=== PATIENT | male | born 1950 | race Caucasian/White ===

== ENCOUNTER 2020-03-23 12:56 | Outpatient (RCR) | payer MEDICARE, SELFPAY | END 2020-06-03 12:04 | disposition home or self-care (01) | LOC: ANHDMC 12:56 | PROVIDERS: PCP Internal Medicine Endocrinology, Diabetes & Metabolism | DX: E10.65 Type 1 diabetes mellitus with hyperglycemia (principal); Z79.4 Long term (current) use of insulin; Z71.89 Other specified counseling | CPT/HCPCS: G0108 ==

== ENCOUNTER 2020-05-20 12:47 | Outpatient (CLI) | payer MEDICARE, SELFPAY ==
--- NOTE | ~2020-05-20 | CT_ITS ---
EXAMINATION: CT abdomen pelvis w con INDICATION: Prostate cancer TECHNIQUE: Computed tomographic images of the abdomen and pelvis were obtained after the administrati on of 100 cc of Omnipaque 350 intravenous contrast. The dose-length product (DLP) was 984.14 mGy-cm. Automated exposure control and iterative reconstruction technique were employed. COMPARISON: None available FINDINGS: Minimal dependent atelectasis is present in the lung bases. The heart size is normal. The l iver, spleen, pancreas, gallbladder, and adrenal glands are normal. The left kidney is unremarkable. A 5 mm hypoattenuating lesion of the right mid kidney is too small to characterize but likely represe nts a cyst. There is a 1.4 cm right common femoral lymph node on image 148. There is calcified athero sclerosis of the aorta and many of the other arteries. There is no free intraperitoneal gas or eviden ce of bowel obstruction. The urinary bladder is distended. A moderate volume of colonic stool is pres ent. The appendix is normal. There is a fat-containing umbilical hernia. There is severe lumbar spond ylosis. IMPRESSION: 1. Enlarged right common femoral chain lymph node, concerning for metastatic disease. 2. Marked distention of the urinary bladder. Reviewed, dictated and finalized at location A. IMPRESSION: 1. Enlarged right common femoral chain lymph node, concerning for metastatic di sease. 2. Marked distention of the urinary bladder.
--- NOTE | ~2020-05-20 | XR_ITS ---
EXAMINATION: XR chest 2V DATE: 05/20/2020 13:08 INDICATION: Prostate cancer TECHNIQUE: PA and lateral views of the chest are obtained. COMPARISON: 01/14/2004 FINDINGS: The lungs are free of acute opacities. There is no pleural effusion or pneumothorax. The ca rdiomediastinal silhouette is normal. There is moderate thoracic spondylosis. Multiple healed bilater al rib fractures are noted. IMPRESSION: 1. No acute cardiopulmonary abnormality. Reviewed, dictated and finalized at location A.
[2020-05-20 13:47] LABS: Estimated Glomerular Filt Rate > 60
== END 2020-05-20 12:48 | disposition home or self-care (01) ==
PROVIDERS: Visit Provider Urology
DX: C61 Malignant neoplasm of prostate (principal)
CPT/HCPCS: 71046; 74177; Q9967

== ENCOUNTER 2020-05-21 08:25 | Outpatient (CLI) | payer MEDICARE, SELFPAY ==
--- NOTE | ~2020-05-21 | NM_ITS ---
EXAMINATION: NM bone scan whole body DATE: 05/21/2020 12:43 INDICATION: Prostate cancer TECHNIQUE: 26.2 mCi Tc-99m HDP was administered intravenously. Delayed whole-body scintigrams were o btained. COMPARISON: CT abdomen and pelvis and chest x-ray dated 05/20/2020 FINDINGS: Moderate amount of activity within the markedly distended bladder despite patient attempted voiding. Linear pattern of minimal increased uptake extending along multiple posterior old right rib fractures . Mild increased uptake at the anterior left fifth rib with suggestion of an additional nondisplaced fracture. Left [id number] amputation. Minimal likely degenerative uptake in a few of the joints i n the bilateral hands and right foot feet. No other suspicious bone lesions to suggest osteoblastic m etastatic disease. IMPRESSION: 1. No lesion suspicious for osseous metastatic disease. Reviewed, dictated and finalized at location B.
== END 2020-05-21 08:26 | disposition home or self-care (01) ==
LOC: ANHIMG 08:28
PROVIDERS: Visit Provider Urology
DX: C61 Malignant neoplasm of prostate (principal)
CPT/HCPCS: 78306; A9561

== ENCOUNTER 2020-10-11 00:21 | Outpatient (CLI) | payer MEDICARE, SELFPAY ==
[2020-10-11 18:26] LABS: SARS-CoV-2 RNA PCR Negative
== END 2020-10-11 00:22 | disposition home or self-care (01) ==
LOC: ANHCOVIDDT 00:21
PROVIDERS: Visit Provider Urology
DX: Z01.812 Encounter for preprocedural laboratory examination (principal); Z20.822 Contact with and (suspected) exposure to COVID-19
CPT/HCPCS: C9803; U0003; U0005

== ENCOUNTER 2020-10-11 08:31 | Outpatient (CLI) | payer MEDICARE, SELFPAY ==
--- NOTE | 2020-10-11 08:35 | ECG_ITS ---
Measurements Intervals [place] Rate: 93 P: 61 ND: 189 QRS: 28 QRSD: 94 T: 43 QT: 361 QTc: 450 Interpretive Statements SINUS RHYTHM FREQUENT VENTRICULAR PREMATURE COMPLEXES POSSIBLE LEFT ATRIAL ENLARGEMENT DELAYED PRECORDIAL R/S TRANSITION BASELINE ARTIFACT- I, III, AVR, AVL ABNORMAL ECG Electronically Signed On 10-11-2020 10:16:04 MANAGER BUSINESS INTELLIGENCE by Blake Morfin D.O.
[2020-10-11 09:43] LABS: Anion Gap 4 mmol/L (8-16); Blood Urea Nitrogen 15 mg/dL (9-20); Calcium 9.5 mg/dL (8.4-10.2); Carbon Dioxide 29 mmol/L (22-30); Chloride 101 mmol/L (98-107); Estimated Glomerular Filt Rate > 60; Glucose 170 mg/dL (75-110); Potassium 3.7 mmol/L (3.4-5.0); Sodium 134 mmol/L (137-145)
== END 2020-10-11 08:32 | disposition home or self-care (01) ==
LOC: ANHSURGERY 08:35
PROVIDERS: Anesthesiology; Visit Provider Urology
DX: E10.9 Type 1 diabetes mellitus without complications (principal); Z01.812 Encounter for preprocedural laboratory examination
CPT/HCPCS: 36415; 80048; 93005

== ENCOUNTER 2020-10-14 01:08 | Day surgery (SDC) | payer MEDICARE, SELFPAY ==
[2020-10-05 09:01] VITALS: BMI 27.1
--- NOTE | 2020-10-06 13:49 | PM.HPGS ---
History of Present Illness History of Present Illness Consent: Risks, benefits, and alternatives have been discussed and questions answered. Patient agrees to proceed with procedure. Chief complaint: prostate CA Narrative: Santosh López is a 70 year old male This is a patient of Dr. León who recently presented with a PSA of 7.8ng/dl. He was diagnosed with clinically localized adenocarcinoma of the prostate and is scheduled for definitive pelvic IMRT. He's opted for placement of SpaceOAR to minimize risk of rectal irritation. Review of Systems Cardiovascular: Cardiovascular: Denies chest pain, Denies lightheadedness, Denies palpitations and Denies dyspnea Respiratory: Respiratory: Denies dyspnea Gastrointestinal: Gastrointestinal: Denies diarrhea, Denies nausea and Denies vomiting Genitourinary: Genitourinary: Denies hematuria and Denies dysuria Endocrine: Endocrine: Denies palpitations PMFSH Past Medical History Medical History Asthma Back pain Cataracts, bilateral Diabetes mellitus Dupuytren's contracture of left hand 1994, 2011, 2017 Dupuytren's contracture of right hand 1996, 2006 Hearing loss Hypertension Prostate disease Surgical History Surgical History H/O angioplasty 09/03 History of oral surgery 1996 Hx of BKA left foot, 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 Previous back surgery L4-L5 trimmed bulging disc in 1992 Family History Family History Other Asthma Blood disorder COPD (chronic obstructive pulmonary disease) Diabetes mellitus Mini stroke Shortness of breath Social History Social History Smoking packs per day: 2 Smoking cigarettes per day: 40.0 Years smoked: 20 Smoking pack-years: 40.00 Smoking status: Former smoker Tobacco type: cigarettes and pipe Additional smoking assessment comments: PT UNCLEAR ON SMOKING HX - QUIT Alcohol intake: current Substance use: never Substance use type: does not use Spiritual care concerns: No Meds Home Medications and Allergies Home Medications Medication Instructions Recorded Confirmed Type aspirin 81 mg tablet,delayed 81 mg PO DAILY 09/30/19 10/05/20 History release azelastine 0.15 % (205.5 mcg) 1 spray NASAL DAILY 09/30/19 10/05/20 History nasal spray carvedilol 25 mg tablet 25 mg PO Q12H 09/30/19 10/05/20 History diltiazem HCl 240 mg 240 mg PO DAILY 09/30/19 10/05/20 History capsule,extended release 24 hr olopatadine 0.2 % eye drops 1 drop EACH EYE DAILY 09/30/19 10/05/20 History pravastatin 40 mg tablet 40 mg PO DAILY 09/30/19 10/05/20 History valsartan 320 1 tablet PO DAILY 09/30/19 10/05/20 History mg-hydrochlorothiazide 25 mg tablet vit C 250 mg-vit E 200 unit-zinc 1 tablet PO BID 09/30/19 10/05/20 History 12.5 mg-copper 1 [id number] tablet cholecalciferol (vitamin D3) 50 50 mcg PO DAILY 12/31/19 10/05/20 History mcg (2,000 unit) capsule insulin lispro 100 unit/mL See Rx Instructions .ROUTE 03/08/20 10/05/20 Rx subcutaneous solution .COMPLEX 90 Days #70 ml blood sugar diagnostic #600 ea 08/27/20 10/05/20 Rx Allergies Allergy/AdvReac Type Severity Reaction Status Date / Time Penicillins Allergy Mild RASH Verified 10/05/20 08:59 clindamycin Allergy Unknown rash Verified 10/05/20 08:59 CEPHALEXIN MONOHYDRATE Allergy Mild RASH Uncoded 10/05/20 08:59 Exam Const: General: no acute distress Resp: Effort & Inspection: normal respiratory effort GI: Inspection: non-distended GI Palp: No abdominal tenderness and No Guarding due to palpation present (GI) Auscultation: normal bowel sounds Assessment and Plan Assessment and plan (1) Prostate cancer: Code(s): C61 - Malignant neoplasm of prostate Status: Acute Assessment and Plan: Transrectal ultrasou
--- NOTE | 2020-10-13 13:43 | WPDANESEPPF ---
Anes - Initial Pre Proc Eval Procedure: Operation Date: 10/14/20 11:30 Proposed Procedures p Insertion SpaceOAR Hydrogel System - Kiko León MD Date/Time: 10/13/20 13:43 Surgeon: Kiko León MD Pre Op Diagnosis: prostate CA Patient Data Age: 70 Gender: M Height: 1.79 m Weight: 86.81 kg Allergies Allergy/AdvReac Type Severity Reaction Status Date / Time Penicillins Allergy Mild RASH Verified 10/14/20 09:32 clindamycin Allergy Unknown rash Verified 10/14/20 09:32 CEPHALEXIN MONOHYDRATE Allergy Mild RASH Uncoded 10/14/20 09:32 Home Medications Medication Instructions Recorded Confirmed Type aspirin 81 mg tablet,delayed 81 mg PO DAILY 09/30/19 10/14/20 History release azelastine 0.15 % (205.5 mcg) 1 spray NASAL DAILY 09/30/19 10/14/20 History nasal spray carvedilol 25 mg tablet 25 mg PO Q12H 09/30/19 10/14/20 History diltiazem HCl 240 mg 240 mg PO DAILY 09/30/19 10/14/20 History capsule,extended release 24 hr olopatadine 0.2 % eye drops 1 drop EACH EYE DAILY 09/30/19 10/14/20 History pravastatin 40 mg tablet 40 mg PO DAILY 09/30/19 10/14/20 History valsartan 320 1 tablet PO DAILY 09/30/19 10/14/20 History mg-hydrochlorothiazide 25 mg tablet vit C 250 mg-vit E 200 unit-zinc 1 tablet PO BID 09/30/19 10/14/20 History 12.5 mg-copper 1 [id number] tablet cholecalciferol (vitamin D3) 50 50 mcg PO DAILY 12/31/19 10/14/20 History mcg (2,000 unit) capsule insulin lispro 100 unit/mL See Rx Instructions .ROUTE 03/08/20 10/05/20 Rx subcutaneous solution .COMPLEX 90 Days #70 ml blood sugar diagnostic #600 ea 08/27/20 10/05/20 Rx Patient hx anesthesia problems: none Family hx anesthesia problems: none PMFSH Past Medical History Medical History (Updated 10/13/20 @ 13:45 by Bobby Hobbs MD) Arthritis Asthma Back pain Cataracts, bilateral Diabetes mellitus Dupuytren's contracture of left hand 1994, 2011, 2018 Dupuytren's contracture of right hand 1996, 2006 Hearing loss Hypercholesterolemia Hypertension Prostate CA Prostate disease PVD (peripheral vascular disease) Surgical History Surgical History H/O angioplasty 09/03 History of oral surgery 1996 Hx of BKA left foot, 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 Previous back surgery L4-L5 trimmed bulging disc in 1992 Family History Family History Other Asthma Blood disorder COPD (chronic obstructive pulmonary disease) Diabetes mellitus Mini stroke Shortness of breath Social History Social History Smoking packs per day: 2 Smoking cigarettes per day: 40.0 Years smoked: 20 Smoking pack-years: 40.00 Smoking status: Former smoker Tobacco type: cigarettes and pipe Additional smoking assessment comments: PT UNCLEAR ON SMOKING HX - QUIT Alcohol intake: current Alcohol use details: STATES 3-5 DRINKS A MONTH Substance use: never Substance use type: does not use Living arrangements: alone Spiritual care concerns: No Anes - Eval Final PreProcedure Day of Procedure 10/13/20 13:43 Patient weight: overweight Heart: regular rate and rhythm Lungs: clear to auscultation and normal air movement Airway: Mallampati scale class II Neurological: alert and oriented Last oral intake: >/= 8 hours ASA classification: III Emergent: no Anesthetic plan: proceed Anesthesia type and monitoring: general GIVS and LMA Informed Consent: The patient's anesthetic plan and its attendant risks and benefits were discussed with the patient/family/POA. Questions were solicited and answers provided to the satisfaction of the patient/family/POA.
[2020-10-14] VITALS (8 sets, daily range): BP systolic 107–148; BP diastolic 75–93; PULSE 82–89; RESP 9–18; TEMP 36.3–36.9; O2SAT 93–99
--- NOTE | 2020-10-14 07:13 | WPDHPUPDATE1 ---
History and Physical Update Update Date/Time: 10/14/20 07:13 History and Physical has been reviewed, including an updated exam of the patient. There are NO changes in the patient's condition. Risks, benefits, and alternatives have been discussed and questions answered. Patient agrees to proceed with procedure.
[2020-10-14] MEDS: LACTATED RINGERS 1,000 ML 30 ML IV CONT (09:59)
[2020-10-14 10:31] LABS: Glucose Point of Care 231 (65-105)
--- NOTE | 2020-10-14 10:44 | SUR.PREOP ---
Spoke with Dr Bobby Hobbs about blood sugar 231. Patient to continue insulin pump as is.
[2020-10-14] MEDS: levoFLOXacin 500 MG/D5W 100 ML 500 MG/100 ML BAG 100 MG IVPB (11:34)
--- NOTE | 2020-10-14 11:58 | P.OP_ITS ---
Procedure Note - Detailed Date of procedure: 10/14/20 Pre-op diagnosis: prostate CA Post-op diagnosis: same Procedure performed: Placement SpaceOAR Description of procedure: This patient has been diagnosed with prostate cancer. Patient has met with a radiation oncologist who has prescribed a course of radiation for treatment of the malignancy. Please refer to the Radiation Oncologist's note for radiation method, dose, number of fractions. After discussing with the radiation oncologist and the patient, it has been agreed upon to proceed with SpaceOAR placement. The purpose of SpaceOAR is to reduce rectal irradiation during radiation therapy by placing an absorbable polyethylene glycol (PEG) hydrogel (SpaceOAR) into perirectal fat space, thereby pushing the rectum away from the prostate. Prior to the procedure, a timeout was performed confirming the patient's identity and planned the procedure. Anesthesia was induced without complication. Antibiotics were administered prophylactically, and the patient completed an enema at home prior to the procedure. The patient was positioned in the dorsal lithotomy position. A transrectal ultrasound probe was inserted per rectum with clear visualization of the prostatic base and apex. SpaceOAR hydrogel was prepared as described in the dough mixing machine operator?s 'Instructions For Use'. Under transrectal ultrasound guidance, a 15 cm 18G needle was inserted, transperineal, through the rectourethralis muscle and the needle tip advanced into the perirectal fat posterior to the prostate. The needle position, and downward bevel, were confirmed in both sagittal and axial brunson. 3-5cc of St erile Saline was used to hydro-dissect the space between the Denonvilliers? fascia and anterior rectal wall. Aspiration did not yield any bleeding. With the needle tip at mid gland, the axial field was viewed to confirm the needle was not in the rectal wall -- movement of the needle tip without corresponding movement of the rectal wall confirmed perirectal placement. The assembled SpaceOAR delivery system was then attached to the 18G needle. Under ultrasound guidance in the sagittal plane, a smooth, continuous injection technique was used to dispense all 10cc of the SpaceOAR hydrogel into the space between the prostate and rectum. Optimal visualization of the needle during hydrogel administration was maintained at all times. An axial measurement of the space between the prostate (mid gland) and rectum immediately post-SpaceOAR injection was noted and measured 1.2cm. No suspected penetration or compromise of the rectal wall occurred. Anesthesia: MAC Surgeon: Kiko León MD Estimated blood loss (mL): 0 Drains: No Packing: No Pathology: none sent Complications: No immediate complications Condition: stable Disposition: PACU
[2020-10-14 12:35] LABS: Glucose Point of Care 246 (65-105)
--- NOTE | 2020-10-14 13:34 | SUR.PHASEII ---
AT 1231, PT GLUCOSE WAS 246, GAVE HIMSELF 4.2 UNITS WITH HIS INSULIN PUMP.
== END 2020-10-14 13:45 | disposition home or self-care (01) ==
PROVIDERS: Visit Provider Urology
PROC: (CPT 55874; principal; 2020-10-14 11:30)
DX: C61 Malignant neoplasm of prostate (principal); J45.909 Unspecified asthma, uncomplicated; E11.9 Type 2 diabetes mellitus without complications; I10 Essential (primary) hypertension; H91.90 Unspecified hearing loss, unspecified ear; Z87.891 Personal history of nicotine dependence; Z79.82 Long term (current) use of aspirin; Z79.4 Long term (current) use of insulin
CPT/HCPCS: 55874; 36415; 80048; 93005; C1889; C9803; J1956; J3010; J7120; U0003; U0005

== ENCOUNTER 2020-10-30 09:24 | Outpatient (CLI) | payer MEDICARE, SELFPAY ==
--- NOTE | ~2020-10-30 | MR_ITS ---
EXAMINATION: MR pelvis wo con INDICATION: Prostate cancer TECHNIQUE: 3D Axial T2 CUBE, Coronal SSFSE ARC, Axial and Coronal 2D FIESTA FatSat, Axial T2 FS, Axia l SSFSE BH ARC, Axial 3D DualEcho BH, Axial SSFSE-IR Jesus, Axial DWI b=600, Axial LAVA ARC, FAT and WA TER:Cor LAVA-FLEX, Axial, Sagittal, and Coronal 2D FIESTA COMPARISON: 05/20/2020 CONTRAST: CT, 05/20/2020 FINDINGS: There is a 2.8 x 1.8 cm area of increased T2 evaluation is somewhat limited by the absence of intravenous contrast. There is unchanged enlargement of a right external iliac chain lymph node. T here is marked distention of the urinary bladder. There are no dilated loops of bowel. Signal intensi ty and low T1 signal intensity situated between the rectum and bladder, likely reflecting biopsy smith ge. IMPRESSION: 1. Mild prostatomegaly with postbiopsy change. 2. Persistent enlargement of a right external iliac chain lymph node, concerning for metastatic disea se. 3. Marked distention of the urinary bladder. Reviewed, dictated and finalized at location A. FIC ENGINEERING DIRECTOR IMPRESSION: 1. Mild prostatomegaly with postbiopsy change. 2. Persistent enlargement of a right external iliac chain lymph node, concernin g for metastatic disease. 3. Marked distention of the urinary bladder.
== END 2020-10-30 09:25 | disposition home or self-care (01) ==
PROVIDERS: Visit Provider Radiology Radiation Oncology
DX: C61 Malignant neoplasm of prostate (principal); N40.0 Benign prostatic hyperplasia without lower urinary tract symptoms; Z98.890 Other specified postprocedural states; R59.0 Localized enlarged lymph nodes; N32.89 Other specified disorders of bladder
CPT/HCPCS: 72195